=== PATIENT | female | born 1950 | race Caucasian/White ===

== ENCOUNTER 2018-05-15 12:31 | Day surgery (SDC) | payer MEDICARE, BC ==
[2018-05-14 10:36] LABS: BASOPHILS % (AUTO) 0.6 % (0-1); EOSINOPHILS % (AUTO) 0.2 % (0-6); LYMPHOCYTES # (AUTO) 1.6 X10'3 (1.1-4.8); LYMPHOCYTES % (AUTO) 25.2 % (21-51); MEAN CORPUSCULAR HGB CONC 34.1 g/dL (33.0-36.5); MEAN CORPUSCULAR VOLUME 90.8 FL (78-98); MEAN PLATELET VOLUME 8.3 FL (7.4-10.4); MONOCYTES # (AUTO) 0.4 X10'3 (0-0.9); MONOCYTES % (AUTO) 6.8 % (2-12); NEUTROPHILS # (AUTO) 4.4 X10'3 (1.8-7.7); NEUTROPHILS % (AUTO) 67.2 % (42-75); PRE OP HEMATOCRIT 44.7 % (35.0-45.0); PRE OP HEMOGLOBIN 15.3 g/dL (12.0-16.0); PRE OP PLATELET COUNT 314 X10'3 (140-440); RED BLOOD COUNT 4.93 X10'6 (4.20-5.60); RED CELL DISTRIBUTION WIDTH 12.6 % (11.5-14.5)
[2018-05-14 10:47] LABS: ALBUMIN 3.9 G/DL (3.4-5.0); ALBUMIN/GLOBULIN RATIO 1.1 (1.1-1.5); ALKALINE PHOSPHATASE 85 IU/L (46-116); BLOOD UREA NITROGEN 16 MG/DL (7-18); BUN/CREATININE RATIO 24.6 (6.6-38.0); CALCIUM 9.2 MG/DL (8.5-10.1); CHLORIDE 106 MMOL/L (99-107); CREATININE 0.65 MG/DL (0.40-0.90); PRE OP ALT 26 U/L (30-65); PRE OP ANION GAP 6 (8-16); PRE OP AST 12 U/L (10-37); PRE OP BILIRUB, TOTAL 0.2 MG/DL (0.0-1.0); PRE OP GLUCOSE 100 MG/DL (70-104); PRE OP POTASSIUM 4.3 MMOL/L (3.4-5.1); PRE OP SODIUM 141 MMOL/L (135-145); TOTAL CARBON DIOXIDE 29.5 MMOL/L (24-32); TOTAL PROTEIN 7.3 G/DL (6.4-8.2); eGFR > 90 ML/MIN
[2018-05-14 11:50] LABS: HEMOGLOBIN A1C 5.8 % (4.5-6.2)
[~2018-05-15] VITALS: Ht 170.2 cm; Wt 68.0 kg
[2018-05-15] VITALS (7 sets, daily range): BP systolic 113–140; BP diastolic 56–90
[~2018-05-15 12:31] MED LIST: CINN500C16 PO; CITA40TA11 PO; LOSA1TAB36 PO; famotidine 20mg tablet PO ONE; ringers solution, lacted 1,000 ML IV SCH
[2018-05-15] MEDS ORDERED: sevoflurane 250ml liquid IH ONE (14:31)
[2018-05-15] MEDS ORDERED: fentaNYL/PF 50MCG/1 ML 2ML syringe ONE ×2 (14:35→14:38)
[2018-05-15] MEDS ORDERED: propofol inj 20 ML IV ONE (14:42)
[2018-05-15] MEDS ORDERED: LIDOcaine 2% (20mg/ml) 5ml vial ONE (14:42)
[2018-05-15] MEDS ORDERED: dexamethasone sod phosphate 4mg/ml inj. ONE (14:44)
[2018-05-15] MEDS ORDERED: ondansetron/PF 4mg/2ml inj ONE (14:44)
[2018-05-15] MEDS ORDERED: morphine 4 MG/ML inj SYRINge IV PRN (15:05)
[2018-05-15] MEDS ORDERED: ondansetron/PF 4mg/2ml inj IV PRN (15:05)
[2018-05-15] MEDS ORDERED: ringers solution, lacted 1,000 ML IV SCH (15:05)
[2018-05-15] MEDS ORDERED: HYDROmorphone inj. 0.5 MG/0.5 ML DISP.SYRIN IV PRN (15:05)
--- NOTE | 2018-05-15 15:15 | NUR ---
Received from OR via BED , accompanied by Anesthesiologist DR MCKINNEY and report given by Anesthesiolgist. pATIENT A&o x4, denies pain, v/s wnl, csm intact, peripad with scant drainage. piv patent
[2018-05-15] MEDS ORDERED: oxyCODONE/APAP 5-325mg tablet PO ONE (15:20)
--- NOTE | 2018-05-15 16:05 | NUR ---
pATIENT A&o x4, denies pain, v/s wnl, csm intact, peripad with scant drainage. ALL DC CRITERIA HAS BEEN MET. IV OUT WITHOUT ISSUE OR COMPLICATION. DENIES PAIN. SPOUSE PRESENT FOR DC PAPERWORK. ALL QUESTIONS ANSWERED, SPOUSE ASSISTED PATIENT IN GETTING DRESSED, OUT VIA WHEELCHAIR TO PERSONAL VEHICLE WHERE HE DROVE HER HOME. ALL DC CRITERIA HAS BEEN MET AND DRESSING IS CDI.
== END 2018-05-15 16:05 | disposition home or self-care (01) ==
LOC: PAS 12:31
PROVIDERS: ATTEND Obstetrics & Gynecology
DX: N85.8 Other specified noninflammatory disorders of uterus (principal); I10 Essential (primary) hypertension; E11.9 Type 2 diabetes mellitus without complications; M19.90 Unspecified osteoarthritis, unspecified site; F32.9 Major depressive disorder, single episode, unspecified; Z83.3 Family history of diabetes mellitus; Z79.899 Other long term (current) drug therapy; Z98.51 Tubal ligation status; Z98.890 Other specified postprocedural states; Z82.49 Family history of ischemic heart disease and other diseases of the circulatory system; Z88.8 Allergy status to other drugs, medicaments and biological substances; Z87.891 Personal history of nicotine dependence
CPT/HCPCS: 36415; 58558; 80053; 82948; 83036; 85025; 86885; 86900; 86901; A6255; J1100; J2001; J2405; J2704; J3010; J7030; 88305; A4355; J7120